=== PATIENT | male | born 1985 | race Caucasian/White ===

== ENCOUNTER 2019-10-24 21:38 | Emergency (ER) | payer SELFPAY ==
[~2019-10-24] VITALS: Ht 175.3 cm; Wt 59.0 kg
--- NOTE | 2019-10-24 22:05 | NUR ---
BIBFRIEND TO ER BED 4. AAOX4. NO RESP DISTRESS NOTED. AMBULATORY. C/O LEFT UPPER ARM LACERATION. PER FRIEND, PT GIT CUT FROM A CHAIN LINKED FENCE. NOTED 5CM X 2 CM, UNAPPROXIMATED SC BLEEDING NOTED, PAIN 02/19. TETANUS REPORTED UPTO DATE. PHILIPP MARTINEZ AT BEDSIDE FOR EVAL.EMT AT BEDSIDE FOR WOUND CLEANING.
[2019-10-24] MEDS ORDERED: LIDOCAINE MPF 1%-EPI 1:200,000 30 ML VIAL IJ ONE (22:11)
[2019-10-24] MEDS ORDERED: TDAP [DIPH/PERTUSSIS/TET] 0.5 ML VIAL IM ONE ×2 (22:12→22:30)
[2019-10-24] MEDS ORDERED: LIDOCAINE 1%-EPI 1:200,000 SDV 10 ML VIAL IJ ONE (22:30)
[2019-10-24 23:52] VITALS: BP 145/78
--- NOTE | 2019-10-24 23:52 | NUR ---
Patient discharged to home in stable condition. Written and verbal after care instructions given. Patient verbalizes understanding of instruction. Pt ambulatory with a steady gait
== END 2019-10-24 23:53 | disposition home or self-care (01) ==
LOC: ER 21:41
DX: S41.112A Laceration without foreign body of left upper arm, initial encounter (principal); F17.200 Nicotine dependence, unspecified, uncomplicated; X58.XXXA Exposure to other specified factors, initial encounter; Y93.89 Activity, other specified; Y92.89 Other specified places as the place of occurrence of the external cause; Y99.8 Other external cause status
CPT/HCPCS: 12002; 90471; 90715; 99283; A6403; J3490 ×2